=== PATIENT | male | born 1940 | race Caucasian/White ===

== ENCOUNTER → 2017-03-29 | Outpatient (CLI) | payer MEDICARE, OTHER ==
[~2017-03-29] MED LIST: ACEON4 MG; AMARYL4 MG PO; ASA5UEC PO; AVELOX400 MG PO; BYSTOLIC 5 MG5 M1 PO; CEFUROXIME500 MG PO; CENTRUM SILVER1 EAC4 PO; COSOPT EYE DROPS5 ML INTRAOCULR; DUONEB 2.5-0.5 M3 ML INH; EFFIENT10 MG PO; EXFORGE PO; FENOFIBRATE134 MG PO; FISHOIL; FLEXERIL PO; FLOMAX0.4 MG PO; FOLIC ACID1 MG PO; GABAPENTIN 100100 MG PO; GLUCOPHAGE500 MG PO; GLUMETZA500; HYDROCHLOROTH12.5 MG PO; HYDROCODON-ACE1 EAC7 PO; INSULIN; IRON325 PO; LANTUSSOLASTAR SUBQ; LEVAQUIN 500 M500 M2 PO; LEVAQUIN 750 M750 MG PO; LIPITOR 10 MG10 M1 PO; LIPITOR40 MG; OXYCODONE-ACET1 EACH PO; Oxycodone PO; PERCOCET 5-3251 EACH PO; PLAVIX 75 MG TA75 MG; PLAVIX 75 MG TA75 MG PO; PROSCAR 5MG TABL5 MG PO; ROXICODONE15 MG PO; TRICOR145 MG; TUSSIONEX PENN473 ML PO; VENLAFAXIN37.5 MG/1 PO; VENTOLIN17 GM INH; ZANAFLEX4 MG PO
[2017-03-29 17:50] LABS: HEMATOCRIT 37.7 % (42.0-52.0); HEMOGLOBIN 12.6 gm/dL (14.0-18.0); MCH 29.6 pg (26.0-34.0); MCHC 33.5 g/dL (28.0-37.0); MCV 88.4 fL (80.0-100.0); MPV 8.3 fl. (7.2-11.1); RBC 4.26 mil/uL (4.50-6.00); RDW-CV 15.3 % (10.5-14.5); WBC 10.6 thou/uL (4.0-11.0)
[2017-03-29 18:05] LABS: CREATININE 1.3 mg/dL (0.6-1.3)
[2017-03-29 18:11] LABS: ALBUMIN 3.7 g/dL (3.4-5.0); TOTAL BILIRUBIN 0.4 mg/dL (<0.1-1.0); TOTAL PROTEIN 6.8 g/dL (6.4-8.2)
== END ==
LOC: M.LAB 17:31
PROVIDERS: Internal Medicine
DX: J43.1 Panlobular emphysema (principal); R91.8 Other nonspecific abnormal finding of lung field; I25.10 Atherosclerotic heart disease of native coronary artery without angina pectoris; I70.0 Atherosclerosis of aorta; K76.89 Other specified diseases of liver; J06.9 Acute upper respiratory infection, unspecified; J44.1 Chronic obstructive pulmonary disease with (acute) exacerbation; Z85.528 Personal history of other malignant neoplasm of kidney; Z90.5 Acquired absence of kidney

== ENCOUNTER → 2017-07-08 | Outpatient (CLI) | payer MEDICARE, OTHER ==
[2017-07-08 15:32] LABS: HEMATOCRIT 38.5 % (42.0-52.0); HEMOGLOBIN 12.7 gm/dL (14.0-18.0)
[2017-07-08 15:46] LABS: ALBUMIN 3.6 g/dL (3.4-5.0); CALCIUM 8.9 mg/dL (8.5-10.1); CREATININE 1.2 mg/dL (0.6-1.3); PHOSPHORUS* 3.4 mg/dL (2.5-4.9); POTASSIUM 4.2 mmol/L (3.5-5.1); TOTAL BILIRUBIN 0.4 mg/dL (<0.1-1.0); TOTAL PROTEIN 6.7 g/dL (6.4-8.2)
[2017-07-09 02:11] LABS: eGFR IF AFRICAN AMERICAN 76 (>59)
[2017-07-09 11:10] LABS: PARATHYROID HORMONE 27 pg/mL (15-65)
== END ==
LOC: M.LAB 14:52
PROVIDERS: Internal Medicine Nephrology
DX: N18.3 Chronic kidney disease, stage 3 (moderate) (principal)

== ENCOUNTER → 2018-01-10 | Outpatient (CLI) | payer MEDICARE, OTHER ==
[2018-01-10 15:17] LABS: ABSOLUTE BASOPHILS 0.1 thou/uL (0.0-0.2); ABSOLUTE EOSINOPHILS 0.2 thou/uL (0.0-0.7); ABSOLUTE LYMPHOCYTES 1.5 thou/uL (0.8-5.3); ABSOLUTE MONOCYTES 0.6 thou/uL (0.0-1.2); BASOPHILS 1.1 %; HEMATOCRIT 42.3 % (42.0-52.0); HEMOGLOBIN 14.1 gm/dL (14.0-18.0); LYMPHOCYTES 20.9 %; MCH 29.9 pg (26.0-34.0); MCHC 33.3 g/dL (28.0-37.0); MCV 89.9 fL (80.0-100.0); MONOCYTES 7.8 %; MPV 8.8 fl. (7.2-11.1); NUCLEATED RBCS 0 /100WBC; PLATELET COUNT* 227 thou/uL (150-400); POLYS 67.2 %; RBC 4.71 mil/uL (4.50-6.00); RDW-CV 15.2 % (10.5-14.5); WBC 7.4 thou/uL (4.0-11.0)
[2018-01-10 15:39] LABS: ALBUMIN 3.9 g/dL (3.4-5.0); CALCIUM 9.4 mg/dL (8.5-10.1); CREATININE 1.2 mg/dL (0.6-1.3); PHOSPHORUS* 3.8 mg/dL (2.5-4.9); POTASSIUM 4.5 mmol/L (3.5-5.1)
[2018-01-11 16:07] LABS: eGFR IF AFRICAN AMERICAN 72 (>59)
[2018-01-12 11:11] LABS: PARATHYROID HORMONE 23 pg/mL (15-65)
== END ==
LOC: M.LAB 14:42
PROVIDERS: Internal Medicine Nephrology
DX: I12.9 Hypertensive chronic kidney disease with stage 1 through stage 4 chronic kidney disease, or unspecified chronic kidney disease (principal); E11.22 Type 2 diabetes mellitus with diabetic chronic kidney disease; N18.3 Chronic kidney disease, stage 3 (moderate); Z79.4 Long term (current) use of insulin

== ENCOUNTER 2018-08-11 10:30 | Emergency (ER) | payer MEDICARE, OTHER ==
[~2018-08-11] VITALS: Ht 185.4 cm; Wt 98.4 kg
[2018-08-11] MEDS ORDERED: NORVASC5 MG PO (10:52)
[2018-08-11] MEDS ORDERED: HYDROCHLOROTH12.5 M1 PO (10:53)
[2018-08-11] MEDS ORDERED: ICAPS MV TABLE1 EAC1 PO (10:55)
[2018-08-11] MEDS ORDERED: NOVOLOG100 UNIT/1 SUBQ (10:56)
[2018-08-11] MEDS ORDERED: JANUVIA 50 MG T50 MG PO (10:57)
[2018-08-11] MEDS ORDERED: RESTORIL30 MG PO (10:59)
[2018-08-11] MEDS ORDERED: ZANAFLEX4 MG PO (11:00)
[2018-08-11] MEDS ORDERED: DIOVAN320 MG PO (11:00)
[2018-08-11] MEDS ORDERED: ASPIR 8181 MG PO (11:06)
[2018-08-11 11:12] LABS: ABSOLUTE EOSINOPHILS 0.1 thou/uL (0.0-0.7); ABSOLUTE LYMPHOCYTES 0.6 thou/uL (0.8-5.3); ABSOLUTE MONOCYTES 0.7 thou/uL (0.0-1.2); BASOPHILS 0.4 %; EOSINOPHILS 1.1 %; HEMOGLOBIN 13.2 gm/dL (14.0-18.0); LYMPHOCYTES 6.5 %; MCH 28.6 pg (26.0-34.0); MCHC 33.1 g/dL (28.0-37.0); MCV 86.4 fL (80.0-100.0); MONOCYTES 7.4 %; MPV 8.4 fl. (7.2-11.1); NUCLEATED RBCS 0 /100WBC; PLATELET COUNT* 220 thou/uL (150-400); POLYS 84.6 %; RBC 4.63 mil/uL (4.50-6.00); RDW-CV 14.8 % (10.5-14.5); WBC 9.5 thou/uL (4.0-11.0)
[2018-08-11 11:16] LABS: ANION GAP 10 mmol/L (7-16); BUN 26 mg/dL (7-18); CALCIUM 9.1 mg/dL (8.5-10.1); CHLORIDE 101 mmol/L (98-107); CO2 27 mmol/L (21-32); CREATININE 1.3 mg/dL (0.6-1.3); GLUCOSE 341 mg/dL (70-99); POTASSIUM 4.1 mmol/L (3.5-5.1); SODIUM 138 mmol/L (136-145)
[2018-08-11 11:18] LABS: APTT 28.7 Seconds (25.0-31.3); PROTIME 10.5 Seconds (9.20-11.50)
[2018-08-11 11:27] LABS: ALBUMIN 3.4 g/dL (3.4-5.0); ALKALINE PHOSPHATASE 48 U/L (46-116); NT-PRO BRAIN NAT PEPTIDE 128 pg/mL (<300); SGOT 22 U/L (15-37); SGPT 45 U/L (30-65); TOTAL BILIRUBIN 0.7 mg/dL (<0.1-1.0); TOTAL PROTEIN 7.2 g/dL (6.4-8.2); TROPONIN-I LEVEL <0.06 ng/mL (<0.06)
[2018-08-11 11:37] LABS: BE 1.1 mmol/L (-2 to +3); PCO2 43.7 mmHg (35.0-45.0); PO2 73.7 mmHg (75.0-100.0); pH 7.396 (7.340-7.450)
[2018-08-11] MEDS ORDERED: IPRAT-ALBUT 0.5-3 ML INH (12:43)
[2018-08-11] MEDS ORDERED: AZITHROMYCIN500 MG PO (12:43)
[2018-08-11] MEDS ORDERED: MEDROLDOSEPACK PO (12:43)
[2018-08-11] MEDS ORDERED: VENTOLIN HFA 1818 GM INH (12:43)
[2018-08-11 14:08] VITALS: BP 136/54
--- NOTE | 2018-08-11 15:41 | EKG ---
[place] [address] ELECTROCARDIOGRAM REPORT Name: TIFFANY ROSARIO Room: [facility]#: [id number] Admission: 08/11/18 Attend Phys: Discharge: 08/11/18 Date of : 44 Report #: [id number] THIS REPORT FOR: //name// [facility] ED Test Date: 2018-08-11 Test Time: 10:42:27 Pat Name: TIFFANY ROSARIO Department: Room: Gender: M Assistant Service Manager: : 1940 Requested By: Merline Ventura Order Number: [id number] MD: Fredi Meyer Measurements Intervals Paron Rate: 62 P: 91 OK: 175 QRS: -70 QRSD: 102 T: 82 QT: 425 QTc: 432 Interpretive Statements Sinus rhythm LAD, consider left anterior fascicular block Anterior infarct, old Nonspecific T abnormalities, lateral leads Baseline wander in lead(s) II,aVR,aVF,V3 Compared to ECG 11/19/2016 15:34:28 Sinus bradycardia no longer present Electronically Signed On 08-11-2018 15:41:27 CDT by Fredi Meyer [email or web address] <ELECTRONICALLY SIGNED> By: Fredi Meyer MD, [facility] 08/11/18 1541 1042 1042 Fredi Meyer MD, [facility] /EPI
== END 2018-08-11 14:12 | disposition home or self-care (01) ==
LOC: M.ERS 10:30
PROVIDERS: Nurse Practitioner Family
DX: J44.1 Chronic obstructive pulmonary disease with (acute) exacerbation (principal); E11.65 Type 2 diabetes mellitus with hyperglycemia; J18.9 Pneumonia, unspecified organism; F17.200 Nicotine dependence, unspecified, uncomplicated; I10 Essential (primary) hypertension; Z95.5 Presence of coronary angioplasty implant and graft

== ENCOUNTER 2018-08-13 05:59 | Inpatient (IN) | payer MEDICARE, OTHER ==
[~2018-08-13] VITALS: Ht 185.4 cm; Wt 99.8 kg
--- NOTE | ~2018-08-13 | CON ---
[address] [address] CONSULTATION Name: TIFFANY ROSARIO Room: [address] IN M.R.#: [id number] Admission: 08/13/18 Attend Phys: Artur Mccain Discharge: Date of : 44 Report #: [id number] THIS REPORT FOR: //name// CC: Fredi Bowling DATE OF SERVICE: 08/13/2018 CHIEF COMPLAINT: Shortness of breath. HISTORY OF PRESENT ILLNESS: The patient is a 78-year-old man with obstructive lung disease and coronary artery disease, who presented to the Emergency Room with 2-3 days of increasing shortness of breath. His oxygen equipment apparently had also failed. He denies chest pain or pressure. His presenting ECG apparently was unremarkable, but is lost. Currently, on telemetry, he is in normal sinus rhythm. He has not been having any exertional chest pressure, tightness, orthopnea or PND. He has had some mild foot swelling. He has underlying hypertension and has been compliant with his medications. Presenting blood pressure is normal. PAST MEDICAL AND SURGICAL HISTORY: He is followed by Dr. Gleason for an underlying coronary disease, remote inferior ID, drug-eluting stent in 2006. He had a negative stress test just this past year. His ejection fraction was in the 50% range. He has diabetes; hypertension; hyperlipidemia; COPD, oxygen requiring. He has a solitary kidney, status post nephrectomy in 1986. He also has DISCHARGE RN of his right lower extremity. MEDICATIONS: Include amlodipine/valsartan 5/320 mg daily, baby aspirin, atorvastatin 20 mg daily, Trusopt, fenofibrate 134 mg daily, Proscar, Neurontin, Amaryl, Microzide 12.5 mg daily, Lantus insulin, DuoNeb, Restoril 30 mg daily, Effexor 75 mg daily. SOCIAL HISTORY: He is a current every day smoker. Does not drink. ALLERGIES: He has no known drug allergies. REVIEW OF SYSTEMS: GENERAL: No fevers or chills. CARDIOVASCULAR: No chest pain. Positive dyspnea with exertion, positive orthopnea, positive PND, positive edema in his feet only. HEMATOLOGIC: [place] [address] CONSULTATION Name: TIFFANY ROSARIO Room: [address] IN [facility]#: [id number] Admission: 08/13/18 Attend Phys: Artur Mccain Discharge: Date of : 44 Report #: [id number] RENAL: No history of kidney failure. Positive nephrectomy. SKIN: No rashes. ENDOCRINE: Positive diabetes. GENITOURINARY: No dysuria or hematuria. NEUROLOGIC: Denies seizures. PSYCHIATRIC: No depression or anxiety. GASTROINTESTINAL: No nausea, hematemesis, melena, jaundice, hepatitis. PHYSICAL EXAMINATION: VITAL SIGNS: Blood pressure 152/65, pulse 63, O2 sat on 5 liters is 97%. GENERAL: This is a moderately obese, elderly male who is alert, oriented, no apparent distress. He is not dyspneic with conversation. HEENT: Unremarkable. Eyes: EOMs intact. No facial asymmetry. NECK: Supple. No jugular venous distention. Carotid upstrokes are normal. I cannot hear bruits. CARDIOVASCULAR: Regular, I could not hear murmur or S3. LUNGS: Clear to auscultation, diminished breath sounds. Expiratory wheezes noted. ABDOMEN: Soft, nontender. EXTREMITIES: There is 1 to 2+ pedal edema. NEUROLOGIC: There are no focal deficits. LABORATORY DATA: Electrocardiogram as noted above was apparently normal, cannot find it. Hemoglobin level is 13.0, white blood cell count is 11.1, platelet count is 281,000. Troponin level is 0.06. BNP is 191. X-ray shows flattened lung todd, no infiltrates, normal cardiac silhouette. IMPRESSION: 1. Acute chronic obstructive pulmonary disease exacerbation. 2. Shortness of breath. 3. Coronary artery disease. 4. History of peripheral vascular disease. 5. Hypertension. 6. Tobaccoism. PLAN: At this point in time, it seems like his symptoms are predominantly Pulmonary. I will check a cardiac troponin level x 1 more and if he has any angina, to notify us. Otherwise, he will follow up routinely with Dr. Gleason. By: [id number] Angulo MD, FACC /nt
[~2018-08-13 05:59] MED LIST changes: +ASPIR 8181 MG PO; +AZITHROMYCIN500 MG PO; +DIOVAN320 MG PO; +HYDROCHLOROTH12.5 M1 PO; +ICAPS MV TABLE1 EAC1 PO; +IPRAT-ALBUT 0.5-3 ML INH; +JANUVIA 50 MG T50 MG PO; +MEDROLDOSEPACK PO; +NORVASC5 MG PO; +NOVOLOG100 UNIT/1 SUBQ; +RESTORIL30 MG PO; +VENTOLIN HFA 1818 GM INH
[2018-08-13 06:24] LABS: BE 1.5 mmol/L (-2 to +3); PCO2 48.6 mmHg (35.0-45.0); PO2 78.1 mmHg (75.0-100.0); pH 7.371 (7.340-7.450)
[2018-08-13 07:05] LABS: ABSOLUTE LYMPHOCYTES 0.8 thou/uL (0.8-5.3); ABSOLUTE NEUTROPHILS 9.3 thou/uL (1.6-8.1); BASOPHILS 0.2 %; EOSINOPHILS 0.1 %; HEMATOCRIT 40.7 % (42.0-52.0); LYMPHOCYTES 7.3 %; MCH 27.9 pg (26.0-34.0); MCHC 31.9 g/dL (28.0-37.0); MCV 87.3 fL (80.0-100.0); MONOCYTES 8.8 %; MPV 8.3 fl. (7.2-11.1); NUCLEATED RBCS 0 /100WBC; PLATELET COUNT* 281 thou/uL (150-400); POLYS 83.6 %; RBC 4.66 mil/uL (4.50-6.00); RDW-CV 14.5 % (10.5-14.5); WBC 11.1 thou/uL (4.0-11.0)
[2018-08-13 07:08] LABS: CALCIUM 9.1 mg/dL (8.5-10.1); CREATININE 1.3 mg/dL (0.6-1.3); POTASSIUM 4.1 mmol/L (3.5-5.1)
[2018-08-13 07:18] LABS: ALBUMIN 3.3 g/dL (3.4-5.0); TOTAL BILIRUBIN 0.6 mg/dL (<0.1-1.0); TOTAL PROTEIN 7.1 g/dL (6.4-8.2)
[2018-08-13 08:02] LABS: NT-PRO BRAIN NAT PEPTIDE 191 pg/mL (<300); TROPONIN-I LEVEL <0.06 ng/mL (<0.06)
[2018-08-13 08:30] VITALS: BP 154/69
[2018-08-13 14:57] VITALS: BP 144/67
[2018-08-13 15:30] VITALS: BP 119/53
[2018-08-13 16:55] VITALS: BP 123/48
[2018-08-13 20:00] VITALS: BP 147/66
[2018-08-14] VITALS: BP 138/50
[2018-08-14 04:00] VITALS: BP 120/47
--- NOTE | 2018-08-14 05:32 | NUR ---
ASSUMED CARE OF PT AFTER REPORFT AT 1930. PT A&OX4. VSS. PHYSICAL ASSESSMENT COMPLETED AND CHARTED.PT ON O2 AT 5L NC. PT TRACING SR/SB ON TELE. PT UPADLIB TO RESTROOOM. PT DENIES ANY PAIN OR DISCOMFORT. PT RESTED WELL ON BED. CALL LIGHT WITHIN REACH.
[2018-08-14 08:00] VITALS: BP 101/50
--- NOTE | 2018-08-14 11:20 | NUR ---
ASSUMED CARE OF PATIENT THIS AM AT 0730. PATIENT CONTINUES A&0 X 4. HE DENIES PAIN. O2 SATS 98% ON 5 LITERS. O2 DECREASED TO3.5 LITERS. TELE SHOWS SINUS ROSARIO. PATIENT'S BP HAS BEEN LOW THIS AM. BP MEDICATIONS HELD UNTIL DR CONSULTED. BLOOD SUGARS MONITORED. PATIENT IS RESTING AT THIS TIME. WILL CONTINUE TO MONITOR.
[2018-08-14 12:57] VITALS: BP 130/46
[2018-08-14 17:56] VITALS: BP 122/46
[2018-08-14 20:00] VITALS: BP 150/57
[2018-08-15] VITALS (7 sets, daily range): BP systolic 120–163; BP diastolic 44–66
--- NOTE | 2018-08-15 07:53 | NUR ---
ASSUMED PT CARE @ 1930. MINIMAL SOA OBSERVED THIS AM. PT DENIED SOA THIS AM. CALL LIGHT IN REACH. HOURLY ROUNDING FOR SAFETY.
[2018-08-15 09:42] LABS: URINE BILIRUBIN NEGATIVE (Negative); URINE BLOOD NEGATIVE (Negative); URINE CLARITY CLEAR; URINE COLOR YELLOW; URINE GLUCOSE-RANDOM 2+ (Negative); URINE KETONES NEGATIVE (Negative); URINE LEUKOCYTES-REFLEX NEGATIVE (Negative); URINE NITRITE-REFLEX NEGATIVE (Negative); URINE PROTEIN NEGATIVE (Negative); URINE UROBILINOGEN 0.2 E.U./dl (0.2-1.0)
--- NOTE | 2018-08-15 14:02 | 2DMMODE ---
[place] [address] 2 D/M-MODE ECHOCARDIOGRAM Name: TIFFANY ROSARIO Room: [address] IN M.R.#: [id number] Admission: 08/13/18 Attend Phys: Schuyler Bowling Discharge: Date of : 44 Date of Service: 08/15/18 1402 Report #: [id number] THIS REPORT FOR: //name// APPROVED REPORT Study performed: 08/15/2018 10:25:07 EXAM: Comprehensive 2D, Doppler, and color-flow Echocardiogram Patient Location: Bedside BSA: 2.24 HR: 49 bpm BP: 149/46 mmHg Other Information Study Quality: Good Indications Dyspnea 2D Dimensions IVSd: 9.34 (7-11mm) LVOT Diam: 21.21 (18-24mm) LVDd: 59.36 mm PWd: 10.24 (7-11mm) Ascending Ao: 38.17 (22-36mm) LVDs: 38.81 (25-40mm) Aortic Root: 33.76 mm Aortic Valve AoV Peak Mauri.: 1.50 m/s AO Peak Gr.: 8.95 mmHg LVOT Max P.42 mmHg AO Mean Gr.: 5.11 mmHg LVOT Mean P.02 mmHg LVOT Max V: 1.05 m/s AO V2 VTI: 34.59 cm LVOT Mean V: 0.65 m/s AMINATA (VTI): 2.68 cm2 LVOT V1 VTI: 26.21 cm Mitral Valve E/A Ratio: 0.87 MV Decel. Time: 263.14 ms MV E Max Mauri.: 0.75 m/s MV PHT: 76.31 ms MVA (PHT): 2.88 cm2 TDI E/Lateral E': 7.50 E/Medial E': 8.33 Medial E' Mauri.: 0.09 m/[place] [address] 2 D/M-MODE ECHOCARDIOGRAM Name: ROSARIOTIFFANY Room: [address] IN .R.#: [id number] Admission: 08/13/18 Attend Phys: Schuyler Bowling Discharge: Date of : 44 Date of Service: 08/15/18 1402 Report #: [id number] Lateral E' Mauri.: 0.10 m/s Pulmonary Valve PV Peak Mauri.: 0.91 m/s PV Peak Gr.: 3.31 mmHg Tricuspid Valve TR Peak Gr.: 9.31 mmHg Left Ventricle The left ventricle is normal size. There is normal LV segmental wall motion. There is normal left ventricular wall thickness. Left ventricular systolic function is normal. The left ventricular ejection fraction is within the normal range. LVEF is 55-60%. Grade I - abnormal relaxation pattern. Right Ventricle The right ventricle is normal size. The right ventricular systolic function is normal. Atria The left atrium size is normal. The right atrium size is normal. Aortic Valve Moderate aortic valve sclerosis. No aortic regurgitation is present. There is no aortic valvular stenosis. Mitral Valve Mild mitral annular calcification. Mild mitral regurgitation. No evidence of mitral valve stenosis. Tricuspid Valve The tricuspid valve is normal in structure. Trace tricuspid regurgitation. Pulmonic Valve The pulmonary valve is normal in structure. There is no pulmonic valvular regurgitation. Great Vessels The aortic root is normal in size. IVC is normal in size and collapses >50% with inspiration. Pericardium There [place] [address] 2 D/M-MODE ECHOCARDIOGRAM Name: TIFFANY ROSARIO Room: [address] IN .R.#: [id number] Admission: 08/13/18 Attend Phys: Schuyler Bowling Discharge: Date of : 44 Date of Service: 08/15/18 1402 Report #: [id number] <Conclusion> The left ventricle is normal size. There is normal left ventricular wall thickness. Left ventricular systolic function is normal. The left ventricular ejection fraction is within the normal range. LVEF is 55-60%. Grade I - abnormal relaxation pattern. The right ventricle is normal size. The left atrium size is normal. Moderate aortic valve sclerosis. No aortic regurgitation is present. There is no aortic valvular stenosis. Mild mitral annular calcification. Mild mitral regurgitation. No evidence of mitral valve stenosis. The tricuspid valve is normal in structure. IVC is normal in size and collapses >50% with inspiration. There is no pericardial effusion. There is normal LV segmental wall motion. <ELECTRONICALLY SIGNED> By: José Miguel Harris MD, [facility] 08/15/18 1402 140 140 José Miguel Harris MD, FACC /INF
--- NOTE | 2018-08-15 15:43 | NUR ---
CM unable to assess at this time, will attempt later
--- NOTE | 2018-08-15 17:16 | NUR ---
PATIENT MAKING PROGRESS TOWARDS GOALS. REMAINS AOX4, PLEASANT, COOPERATIVE. CARDIOLOGY SIGNED OFF, PER RIAZ HAMMER NP SUGGEST TO HOSPITALIST TO D/C METOPROLOL AND IF NECESSARY RECONSULT CARDIOLOGY. DR MARKS D/C'D METOPROLOL. PATIENT WITH NO MORE PAUSES THIS SHIFT. REMAINS VISUALLY SOA EVEN THOUGH PATIENT DENIES IT. ON 3L NC THROUGHOUT SHIFT. 1+ EDEMA TO BILATERAL LOWER EXTREMITIES. PATIENT HAS GOOD APPETITE, HOWEVER BLOOD SUGARS ELEVATED THIS SHIFT FAMILY BROUGHT IN EXTRA FOOD FOR LUNCH. PATIENT DENIES PAIN/NAUSEA OR ANY OTHER NEW ACUTE CONCERNS.
[2018-08-16 04:00] VITALS: BP 166/56
--- NOTE | 2018-08-16 05:14 | NUR ---
PATIENT PARTIALLY PROGRESSING TOWARDS GOALS: O2 SATURATION >92% ON 3L O2 NC. PATIENT VISIBLY SHORT OF AIR ON EXERTION BUT DENIES IT. WELT SLASHER TRACING SR/SB, OCCASIONALLY IN THE 40'S BUT NO PAUSES NOTED THIS SHIFT. BLOOD SUGAR CRITICALLY HIGH AT HS, ADDRESSED WITH DR. THOMPSON. ADDITIONAL LISPRO ORDERED AND ADMINISTERED. CALL LIGHT WITHIN REACH
[2018-08-16 08:00] VITALS: BP 145/44
[2018-08-16 11:35] VITALS: BP 124/59
[2018-08-16 15:38] VITALS: BP 135/50
--- NOTE | 2018-08-16 15:40 | NUR ---
Pt is A&O. Resides at home with his . Independent with ADLs. Pt uses a walker for community distances. Pt [facility] o2 [facility]. No hx of HH or SNF. Goal is home at ma. No needs anticipated. Following.
[2018-08-16 15:42] VITALS: BP 144/52
--- NOTE | 2018-08-16 15:59 | NUR ---
ASSUMED PT CARE AT 0730. AOX4, UP AD GILLIAN. O2 SAT 90'S 2L NC. TRACING SINUS ROSARIO ON AUTOMATIC SCREWMAKER. ABDOMEN SOFT AND ROUND. IV ACCESS INTACT. LUNG SOUND CLEAR. DENIES PAIN. VSS, AM ASSESSMENT CHARTED. MEDS GIVEN PER MAR. CALL LIGHT WITHIN REACH. HOURLY ROUNDING. WILL CONTINUE TO MONITOR.
--- NOTE | 2018-08-16 18:03 | NUR ---
PT O2 SAT AT 90'S 2L NC. UP AD GILLIAN. STILL TRACING SR/SB ON TELE.PT DENIES ANY PAIN. PT FOR ACCU CHECK. ON SLIDING SCALE. PT HAD CHEST XRAY TODAY.PT RECEIVING ANTIBIOTICS. IV ACCESS INTACT. ALL NEED MET AT THIS TIME. WILL CONTINUE TO MONITOR.
[2018-08-16 19:45] VITALS: BP 147/47
[2018-08-17] VITALS: BP 160/77
[2018-08-17 03:44] VITALS: BP 132/52
--- NOTE | 2018-08-17 06:56 | NUR ---
RECEIVED REPORT AND ASSUMED CARE AT 1900. VSS. CARDIAC MONITORING IN PLACE. PT DENIES COMPLAINTS OF PAIN. ASSESSMENT COMPLETED CHARTED, PT UP AD GILLIAN IN ROOM, ON 2L NC. MEDICATION ADMIN PER MAY. BED LOCKED IN LOWEST POSITION, CALL LIGHT WITHIN REACH, BED ALARM ON. HOURLY ROUNDING COMPLETED AND ALL NEEDS MET.
[2018-08-17 08:00] VITALS: BP 100/52
[2018-08-17 12:00] VITALS: BP 107/47
[2018-08-17] MEDS ORDERED: PREDNISONE 10 M10 MG PO (13:34)
[2018-08-17] MEDS ORDERED: KEFLEX500 M1 PO (13:34)
[2018-08-17 13:45] VITALS: BP 107/47
--- NOTE | 2018-08-17 14:35 | NUR ---
DISCHARGE NOTE - NO IV PRESENT. ALL BELONGINGS SENT WITH PT. REVIEWED INSTRUCTIONS WITH PT AND SPOUSE. NO QUESTIONS.
== END 2018-08-17 14:35 | disposition home or self-care (01) | DRG 189 ==
LOC: M.ERS 05:59 → M.TBA-ER 06:11 → M.2W 06:11
PROVIDERS: Personal Emergency Response Attendant; ADMIT Internal Medicine
DX: J96.01 Acute respiratory failure with hypoxia (principal); I10 Essential (primary) hypertension; J43.9 Emphysema, unspecified; F17.210 Nicotine dependence, cigarettes, uncomplicated; I25.10 Atherosclerotic heart disease of native coronary artery without angina pectoris; E78.5 Hyperlipidemia, unspecified; E11.51 Type 2 diabetes mellitus with diabetic peripheral angiopathy without gangrene; Z79.899 Other long term (current) drug therapy; Z79.82 Long term (current) use of aspirin; Z79.4 Long term (current) use of insulin; Z95.5 Presence of coronary angioplasty implant and graft; Z85.528 Personal history of other malignant neoplasm of kidney; Z98.49 Cataract extraction status, unspecified eye; I25.2 Old myocardial infarction; Z90.5 Acquired absence of kidney

== ENCOUNTER → 2019-01-17 | Outpatient (CLI) | payer MEDICARE, OTHER ==
[~2019-01-17] MED LIST changes: +KEFLEX500 M1 PO; +PREDNISONE 10 M10 MG PO
[2019-01-17 11:51] LABS: ABSOLUTE BASOPHILS 0.1 thou/uL (0.0-0.2); ABSOLUTE EOSINOPHILS 0.2 thou/uL (0.0-0.7); ABSOLUTE LYMPHOCYTES 1.3 thou/uL (0.8-5.3); ABSOLUTE MONOCYTES 0.6 thou/uL (0.0-1.2); ABSOLUTE NEUTROPHILS 4.7 thou/uL (1.6-8.1); EOSINOPHILS 3.4 %; HEMATOCRIT 36.5 % (42.0-52.0); HEMOGLOBIN 12.2 gm/dL (14.0-18.0); LYMPHOCYTES 18.6 %; MCH 28.8 pg (26.0-34.0); MCHC 33.3 g/dL (28.0-37.0); MCV 86.3 fL (80.0-100.0); MONOCYTES 8.6 %; MPV 8.1 fl. (7.2-11.1); NUCLEATED RBCS 0 /100WBC; PLATELET COUNT* 233 thou/uL (150-400); POLYS 68.4 %; RBC 4.23 mil/uL (4.50-6.00); RDW-CV 15.7 % (10.5-14.5); WBC 6.9 thou/uL (4.0-11.0)
[2019-01-17 12:01] LABS: ALBUMIN 3.5 g/dL (3.4-5.0); CALCIUM 9.8 mg/dL (8.5-10.1); CREATININE 1.2 mg/dL (0.6-1.3); PHOSPHORUS* 3.7 mg/dL (2.5-4.9); POTASSIUM 4.2 mmol/L (3.5-5.1)
[2019-01-17 12:11] LABS: CALCIUM 9.7 mg/dL (8.5-10.1); CREATININE 1.3 mg/dL (0.6-1.3); PHOSPHORUS* 3.7 mg/dL (2.5-4.9)
== END ==
LOC: M.LAB 11:36
PROVIDERS: Internal Medicine Nephrology
DX: I12.9 Hypertensive chronic kidney disease with stage 1 through stage 4 chronic kidney disease, or unspecified chronic kidney disease (principal); N18.3 Chronic kidney disease, stage 3 (moderate); E11.22 Type 2 diabetes mellitus with diabetic chronic kidney disease; Z79.4 Long term (current) use of insulin

== ENCOUNTER → 2019-11-14 | Outpatient (CLI) | payer MEDICARE, OTHER ==
[2019-11-14 15:17] LABS: ABSOLUTE BASOPHILS 0.1 thou/uL (0.0-0.2); ABSOLUTE EOSINOPHILS 0.2 thou/uL (0.0-0.7); ABSOLUTE LYMPHOCYTES 1.5 thou/uL (0.8-5.3); ABSOLUTE MONOCYTES 0.5 thou/uL (0.0-1.2); ABSOLUTE NEUTROPHILS 4.7 thou/uL (1.6-8.1); BASOPHILS 1.3 %; EOSINOPHILS 3.3 %; HEMATOCRIT 40.5 % (42.0-52.0); HEMOGLOBIN 13.7 gm/dL (14.0-18.0); LYMPHOCYTES 21.5 %; MCHC 33.8 g/dL (28.0-37.0); MCV 88.8 fL (80.0-100.0); MONOCYTES 7.6 %; MPV 8.1 fl. (7.2-11.1); NUCLEATED RBCS 0 /100WBC; PLATELET COUNT* 240 thou/uL (150-400); POLYS 66.3 %; RBC 4.56 mil/uL (4.50-6.00); RDW-CV 15.5 % (10.5-14.5)
[2019-11-14 15:25] LABS: ALBUMIN 3.9 g/dL (3.4-5.0); CALCIUM 9.1 mg/dL (8.5-10.1); CREATININE 1.3 mg/dL (0.6-1.3); PHOSPHORUS* 3.6 mg/dL (2.5-4.9); POTASSIUM 3.9 mmol/L (3.5-5.1)
[2019-11-14 15:41] LABS: CREATININE 1.4 mg/dL (0.6-1.3); PHOSPHORUS* 3.9 mg/dL (2.5-4.9)
== END ==
LOC: M.LAB 14:56
PROVIDERS: ATTEND Internal Medicine Nephrology
DX: N18.3 Chronic kidney disease, stage 3 (moderate) (principal)